=== PATIENT | female | born 1945 | race Caucasian/White ===

== ENCOUNTER → 2016-09-05 | Outpatient (CLI) | payer OTHER ==
[~2016-09-05] MED LIST: ACET-24 PO; ASPI-232 PO; ASPI81TA28 PO; CARB25TA12 PO; CLB200 PO; DTRSR/2 PO; FLX5 PO; FURO-85 PO; KETO2CRE14 TOP; LEVO50TA PO; LOSA1TAB PO; MIRA1TAB3 PO; ONDA8TAB6 PO; OXYSR/20 PO; POTA10CA28 PO; RXC5 PO; SIMV20TA5 PO; SNK PO; SPIR50TA2 PO; ULT/50 PO
== END | disposition home or self-care (01) ==
LOC: C.LABSPEC 17:19
PROVIDERS: ATTEND Urology
DX: N39.0 Urinary tract infection, site not specified (principal)

== ENCOUNTER → 2016-10-23 | Outpatient (CLI) | payer OTHER | END | disposition home or self-care (01) | LOC: C.LABSPEC 10:10 | PROVIDERS: ATTEND Nurse Practitioner Family | DX: R39.15 Urgency of urination (principal); N39.41 Urge incontinence; N39.0 Urinary tract infection, site not specified ==

== ENCOUNTER → 2017-02-12 | Outpatient (CLI) | payer OTHER | END | disposition home or self-care (01) | LOC: C.LABSPEC 17:00 | PROVIDERS: ATTEND Nurse Practitioner Family | DX: N39.41 Urge incontinence (principal); N39.0 Urinary tract infection, site not specified ==

== ENCOUNTER 2017-03-18 04:53 | Inpatient (IN) | payer OTHER ==
[2017-03-07 14:57] VITALS: Ht 160 cm; Wt 72.2 kg
--- NOTE | 2017-03-07 15:31 | PAT Medication Instructions ---
Service Date Mar 07, 2017. Current Home Medication List Aspirin (Aspir-81), 1 TAB PO HS Carbidopa/Levodopa (Sinemet 25MG/100MG), 1.5 TAB PO TID Furosemide (Lasix), 20 MG PO QAM Ketoconazole 2% (Nizoral 2%), 1 APPLN TOP PRN Levothyroxine Sodium (Synthroid), 50 MCG PO QAM Losartan Potassium (Cozaar), 25 MG PO QAM Mirabegron (Myrbetriq Er), 50 MG PO HS Potassium Chloride (Micro-K Ext Rel), 1 CAP PO QAM Simvastatin (Zocor), 20 MG PO HS Spironolactone (Aldactone), 50 MG PO QAM Tolterodine Tartrate (Detrol LA), 1 CAP PO BID Tramadol Hcl (Ultram), 50 MG PO Q6 PRN Medication Instructions For Your Scheduled Surgery - Hold the following medications 24 hours prior to surgery: Ketoconazole 2% (Nizoral 2%), 1 APPLN TOP PRN - Hold the following medications the morning of surgery: Spironolactone (Aldactone), 50 MG PO QAM Tolterodine Tartrate (Detrol LA), 1 CAP PO BID Losartan Potassium (Cozaar), 25 MG PO QAM Potassium Chloride (Micro-K Ext Rel), 1 CAP PO QAM Furosemide (Lasix), 20 MG PO QAM - Take the following medications the morning of surgery with a sip of water: Tramadol Hcl (Ultram), 50 MG PO Q6 PRN (okay to take up to 4 hours prior to surgery if needed) Levothyroxine Sodium (Synthroid), 50 MCG PO QAM Carbidopa/Levodopa (Sinemet 25MG/100MG), 1.5 TAB PO TID - Take the following medications as scheduled the night before surgery: Tramadol Hcl (Ultram), 50 MG PO Q6 PRN (if needed) Tolterodine Tartrate (Detrol LA), 1 CAP PO BID Simvastatin (Zocor), 20 MG PO HS Mirabegron (Myrbetriq Er), 50 MG PO HS Aspirin (Aspir-81), 1 TAB PO HS (okay to continue per surgeon) Carbidopa/Levodopa (Sinemet 25MG/100MG), 1.5 TAB PO TID If you have any questions please call us at [phone] or [phone] or [phone]
--- NOTE | 2017-03-07 16:03 | DIAGNOSTIC IMAGING REPORT ---
CHEST PREADMISSION(PA/LAT) CLINICAL HISTORY: PAT preoperative evaluation COMPARISON STUDY: 03/01/2016 FINDINGS: The bones soft tissues and hemidiaphragms are normal. The cardiomediastinal silhouette is normal. The lungs are clear. The pulmonary vasculature is normal. IMPRESSION: Negative chest. The above report was generated using voice recognition software. It may contain grammatical, syntax or spelling errors. Electronically signed by: Garcia Mckinney M.D. 03/07/2017 4:02 PM Dictated Date/Time: 03/07/2017 4:02 PM
[2017-03-07 16:10] LABS: BASO % 0.7 %; BASO ABS # 0.05 K/uL (0-0.2); COMPLETE YES; EOS % 6.1 %; HEMATOCRIT 46.3 % (37-47); IG% 0.1 %; LYMPH % 24.7 %; LYMPH ABS # 1.77 K/uL (1.2-3.4); MEAN CELL VOLUME 93.9 fL (80-100); MEAN CORPUSCULAR HEMOGLOBIN 30.8 pg (25-34); MEAN CORPUSCULAR HGB CONC 32.8 g/dl (32-36); MEAN PLATELET VOLUME 9.7 fL (7.4-10.4); MONO % 10.6 %; NEUT % 57.8 %; PLATELET COUNT 282 K/uL (130-400); RED BLOOD COUNT 4.93 M/uL (4.2-5.4); WHITE BLOOD COUNT 7.18 K/uL (4.8-10.8)
[2017-03-07 16:13] LABS: URINE APPEARANCE CLEAR (CLEAR); URINE BILIRUBIN NEG (NEG); URINE COLOR YELLOW; URINE NITRITE NEG (NEG); URINE SPECIFIC GRAVITY 1.019 (1.000-1.030); UROBILINOGEN NEG (NEG)
[2017-03-07 16:19] LABS: MANUAL MICROSCOPIC REQUIRED? NO; REVIEW REQ? NO
[2017-03-07 16:32] LABS: PARTIAL THROMBOPLASTIN RATIO 1.1; PROTHROMBIN TIME (PATIENT) 10.4 SECONDS (9.0-12.0)
--- NOTE | 2017-03-14 18:38 | History and Physical ---
History & Physical Date Mar 14, 2017. Chief Complaint RIGHT KNEE PAIN History of Present Illness The patient is a 71 year old female with complaints of right knee pain for years. Pt has severe flexion contracture of about 15 degrees. Pt has tried nsaids and PT and injections with no relief. Pt is ready for right TKA. Past Medical/Surgical History Surgical Problems: (1) Post-operative state Additional History Hepatic Disease: No Endocrine Disorder: No Kidney Disease: No Hypertension: Yes Heart Disease: No Bleeding Tendencies: No Infectious Diseases: No Allergies Coded Allergies: Lisinopril (Verified Adverse Reaction, Mild, COUGH, 03/07/17) Home Medications Scheduled Aspirin (Aspir-81), 1 TAB PO HS Carbidopa/Levodopa (Sinemet 25MG/100MG), 1.5 TAB PO TID Furosemide (Lasix), 20 MG PO QAM Ketoconazole 2% (Nizoral 2%), 1 APPLN TOP PRN Levothyroxine Sodium (Synthroid), 50 MCG PO QAM Losartan Potassium (Cozaar), 25 MG PO QAM Mirabegron (Myrbetriq Er), 50 MG PO HS Potassium Chloride (Micro-K Ext Rel), 1 CAP PO QAM Simvastatin (Zocor), 20 MG PO HS Spironolactone (Aldactone), 50 MG PO QAM Tolterodine Tartrate (Detrol LA), 1 CAP PO BID Scheduled PRN Tramadol Hcl (Ultram), 50 MG PO Q6 PRN Physical Examination Skin: warm/dry, no rash Eyes: normal inspection, EOMI, sclerae normal ENT: normal ENT inspection, pharynx normal Head: normocephalic, atraumatic Neck: supple, no adenopathy, trachea midline Respiratory/Chest: lungs clear, normal breath sounds, no respiratory distress Cardiovascular: regular rate, rhythm, no edema, no murmur Abdomen / GI: normal bowel sounds, non tender Back: normal inspection Extremities: normal inspection, normal range of motion, + pertinent finding ( pain with rom. Rom is 15-100. 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
[~2017-03-18] VITALS: Ht 160 cm; Wt 72.2 kg
[2017-03-18] VITALS (9 sets, daily range): BP systolic 97–120; BP diastolic 60–91; PULSE 80–90; TEMP 36.4–36.8; O2SAT 91–94
[~2017-03-18 04:53] MED LIST changes: -ACET-24 PO; -ASPI81TA28 PO; -CLB200 PO; -FLX5 PO; -ONDA8TAB6 PO; -OXYSR/20 PO; -RXC5 PO; -SNK PO
[2017-03-18] MEDS ORDERED: LACTATED RINGER'S 1000ML 500 ML IV ONE (06:00)
[2017-03-18] MEDS ORDERED: TRANEXAMIC ACID INJ 1,000 MG in SODIUM CHLORIDE 0.9% 100ML 100 ML IV SCH ×2 (06:00→14:00)
[2017-03-18] MEDS ORDERED: LACTATED RINGER'S 1000ML 1,000 ML IV SCH (06:00)
[2017-03-18] MEDS ORDERED: CeleBREX 200 MG CAP PO SCH (06:00)
[2017-03-18] MEDS ORDERED: CEFAZOLIN 1000MG/55 ML D5W 55 ML IV SCH (06:00)
[2017-03-18] MEDS ORDERED: ROPIVACAINE 5MG/ML 30 ML 150 MG, BUPIVACAINE/EPINEPHR 0.5% MPF 30 ML, KETOROLAC TROMETH... INFIL SCH ×7 (06:00)
[2017-03-18] MEDS ORDERED: LACTATED RINGER'S 1000ML IV SCH (06:00)
[2017-03-18] MEDS ORDERED: BUPIVACAINE 0.5 % 5 MG/1 ML PF 10ML VIAL ONE (06:26)
[2017-03-18] MEDS ORDERED: BUPIVACAINE 0.25% 30 ML VIAL ONE (06:27)
[2017-03-18] MEDS ORDERED: EpINEphrine INJ 1MG/ML AMP 1 MG/ML AMP ONE (06:27)
[2017-03-18] MEDS ORDERED: BACITRACIN 50000 UNIT VIAL ONE (06:41)
[2017-03-18] MEDS ORDERED: POVIDONE-IODINE OP SOLN 30 ML BTL ONE (06:41)
[2017-03-18] MEDS ORDERED: NURSING VERBAL MED ORDER STA (06:43)
[2017-03-18] MEDS ORDERED: MIDAZOLAM HCL 1 MG/ML 2ML VIAL ONE ×2 (06:45)
[2017-03-18] MEDS ORDERED: FENTANYL CITRATE INJ 50 MCG/1 ML 2 ML VIAL ONE (06:45)
[2017-03-18] MEDS ORDERED: LIDOCAINE HCL 2% 2 ML VIAL (20MG/ML) ONE (06:50)
[2017-03-18] MEDS ORDERED: PROPOFOL IV EMULSION 10 MG/ML 20 ML VIAL IV ONE (06:50)
--- NOTE | 2017-03-18 06:51 | History & Physical Bridge Note ---
H&P Re-Evaluation Bridge Note: I have examined the patient, reviewed the History & Physical and in the interval since the performance of the History & Physical I have noted the following changes of clinical significance: No changes noted
[2017-03-18] MEDS ORDERED: PHENYLEPHRINE 100MCG/ML 5ML SYR ONE (07:47)
[2017-03-18] MEDS ORDERED: EpHEDrine SULFATE 50MG/5ML SYR ONE (08:06)
[2017-03-18] MEDS ORDERED: EpHEDrine SULFATE INJ 50 MG/ML AMP IV PRN (08:15)
[2017-03-18] MEDS ORDERED: ATROPINE SULFATE 0.1 MG/ML 5ML SYR IV PRN (08:15)
[2017-03-18] MEDS ORDERED: ONDANSETRON INJ 2 MG/ML 2 ML VIAL IV PRN ×2 (08:15→08:30)
[2017-03-18] MEDS ORDERED: PROMETHAZINE HCL INJ 6.25 MG in SODIUM CHLORIDE 0.9% 50ML 50 ML IV PRN (08:15)
[2017-03-18] MEDS ORDERED: FENTANYL CITRATE INJ 50 MCG/1 ML 2 ML VIAL IV PRN (08:15)
[2017-03-18] MEDS ORDERED: KETOCONAZOLE 2% CR 15 GM TUBE EXT PRN (08:30)
[2017-03-18] MEDS ORDERED: MAGNESIUM HYDROXIDE SUSP 30 ML UDC PO PRN (08:30)
[2017-03-18] MEDS ORDERED: ZOLPIDEM TARTRATE 5 MG TAB PO PRN (08:30)
[2017-03-18] MEDS ORDERED: ALUMINUM/MAGNESIUM/SIMETH (MAALOX MAX) 30 ML UDC PO PRN (08:30)
[2017-03-18] MEDS ORDERED: SILVER SULFADIAZINE 1% CR 50 GM JAR EXT PRN (08:30)
[2017-03-18] MEDS ORDERED: BISACODYL 10 MG SUPP PR PRN (08:30)
--- NOTE | 2017-03-18 08:30 | [facility] Operative Report ---
Operative Report Operative Date Mar 18, 2017. 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 Post-Operative Diagnosis Same as preoperative diagnosis. Procedure(s) Performed Right total knee arthroplasty. Surgeon Dr. Muir [employer] Surgeon(s) Юлия Tyler PA-C Estimated Blood Loss 20ML Findings As above Specimens A. Right knee bone and tissue. Complication(s) None Disposition Recovery Room / PACU Description of Procedure IMPLANTS USED: Horacio triathlon posterior stabilized size 4 cemented femoral component, a size 3 universal baseplate and a size 9 PS insert with size 32 all polyethylene patella (For a [place] knee) INDICATIONS: [Mr./. ] is a pleasant (female) who has unfortunately failed all forms of conservative measures. Therefore, they have decided to undergo elective surgical intervention. All risks and benefits of the surgery were discussed with the patient and the family in entirety. PROCEDURE: The patient was brought to the operating room and properly identified by myself, anesthesia, and staff. Patient was given a spinal anesthesia and placed on the operating table in the supine position. Tourniquets were applied to the right upper thigh. The leg was then prepped and draped in usual sterile fashion. We made a standard midline approach over the patella and dissected down through the subcutaneous tissue to identify the capsule and performed a medial capsulotomy with the patella everted and the knee flexed. We then removed the spurs from around the femur and proximal tibia. I then put in a pilot can router hole in the femur, put the IM cutting guide into place in approximately 5 degrees of valgus, and then the distal femoral cut was made. The femur measure to be a size 4. This was then put into place. We made the appropriate cuts and then placed a retractor behind the proximal tibia to retract anteriorly. We then placed the extramedullary cutting guide in place , made sure we had the appropriate varus and valgus alignment and appropriate slope, and the proximal tibia cut was made. It measured to be a size 3. A size 3 guide was then put in place. We used the tibial punch then put the trial components into place. We had very good range of motion, excellent stability, and excellent patella tracking. We removed the trial components and irrigated the wound. We impacted the components in place using antibiotic cement. All excess cement was removed. We then irrigated the wound once more. We closed the capsule with 0 PDS suture, deep dermis with 2-0 Vicryl, and finally the skin with jani. A sterile dressing was applied. The patient was taken to the recovery room in stable condition. Due to the complex nature of the procedure, the entire surgery was performed with the operational assistance of [the (JORGE)]. The medical assistant secretary was under direct supervision, was involved in the actual performance of all aspects of the surgical procedure including hemostasis, tissue retraction and incision, instrument management, patient positioning, and wound closure. I attest to the content of the Intraoperative Record and any orders documented therein. Any exceptions are noted below.
--- NOTE | 2017-03-18 09:18 | Anesthesiology Progress Note ---
Anesthesia Post Op Note Date & Time Mar 18, 2017 at 09:18 Vital Signs Pain Intensity: 0 Vital Signs Past 12 Hours Date Time Temp Pulse Resp B/P (MAP) Pulse Ox O2 Delivery O2 Flow Rate FiO2 03/18/17 09:10 89 16 106/50 95 Nasal Cannula 2 03/18/17 09:00 94 16 114/54 94 Nasal Cannula 3 03/18/17 08:52 36.6 92 16 106/48 94 Nasal Cannula 3 03/18/17 05:46 36.6 81 18 109/91 93 Room Air Notes Mental Status: alert / awake / arousable, participated in evaluation Pt Amnestic to Procedure: Yes Nausea / Vomiting: adequately controlled Pain: adequately controlled Airway Patency, RR, SpO2: stable & adequate BP & HR: stable & adequate Hydration State: stable & adequate Anesthetic Complications: no major complications apparent
[2017-03-18] MEDS: SODIUM CHLORIDE 0.9% 1000ML 1,000 ML IV SCH ×2 (10:23→18:14)
[2017-03-18] MEDS: OXYCODONE HCL IR 5 MG TAB (IMMEDIATE RELEASE) PO PRN ×3 (10:52→20:56)
--- NOTE | 2017-03-18 13:10 | Medical Consult ---
Consultation Date of Consultation: Mar 18, 2017. Attending Physician: Gary Muir DO Reason for Consultation: Medical Management History of Present Illness Ms. Houston is a 71 y/o female with PMHx of Parkinson's, HTN, Hypothyroidism, HLD, Pre-DM (Diet Controlled) who is S/P TKA on 03/18. Currently pain is well managed and she is hemodynamically stable. She reports good control with her Parkinson symptoms but reports shuffling gait and bradykinesia. She reports a H/ O pre-DM but never diagnosed with DM. She denies a cardiac H/O including SC, CAD , CHF, or DVT/PE. HTN has been controlled and takes diuretics for BP control per patient. Pre-operative echo reviewed and EF WNL with trace MR and TR. Past Medical/Surgical History 1. HTN 2. Hypothyroidism 3. HLD 4. Parkinson's 5. Pre-DM Family History Alzheimers Disease Coronary Artery Disease Social History Smoking Status: Never Smoker Smokeless Tobacco Use: No Alcohol Use: none Drug Use: none Allergies Coded Allergies: Lisinopril (Verified Adverse Reaction, Mild, COUGH, 03/18/17) Current Inpatient Medications Current Inpatient Medications Medications (Trade) Dose Ordered Sig/Miguel Route Start Time Stop Time Status Last Admin Dose Admin Fentanyl Citrate (Fentanyl Inj) 50 mcg Q5M PRN IV 03/18/17 08:15 03/18/17 13:15 Ondansetron HCl (Zofran Inj) 4 mg ONE PRN IV 03/18/17 08:15 03/18/17 13:15 Promethazine HCl 6.25 mg/Sodium Chloride 50.25 ml @ 202 mls/hr ONE PRN IV 03/18/17 08:15 03/18/17 13:15 Ephedrine Sulfate (EpHEDrine SULFATE INJ) 5 mg Q5M PRN IV 03/18/17 08:15 03/18/17 13:15 Atropine Sulfate (Atropine Sulfate 0.1MG/Ml Inj) 0.5 mg Q1M PRN IV 03/18/17 08:15 03/18/17 13:15 Sodium Chloride 1,000 ml @ 100 mls/hr Q10H IV 03/18/17 08:18 03/19/17 08:17 03/18/17 10:23 100 MLS/HR Oxycodone HCl (Roxicodone Immediate Rel Tab) 1 TABLET FOR PAIN RATING... Q4H PRN PO 03/18/17 08:30 04/01/17 08:29 03/18/17 10:52 10 MG Acetaminophen (Tylenol Tab) 1,000 mg Q8 PO 03/18/17 14:00 04/17/17 13:59 Magnesium Hydroxide (Milk Of Magnesia Susp) 30 ml Q6H PRN PO 03/18/17 08:30 04/17/17 08:29 Bisacodyl (Dulcolax Supp) 10 mg DAILY PRN NC 03/18/17 08:30 04/17/17 08:29 Docusate Sodium (coLACE CAP) 100 mg BID PO 03/18/17 21:00 04/17/17 20:59 Diphenhydramine HCl (Benadryl Cap) 25 mg Q8H PRN PO 03/18/17 08:30 04/17/17 08:29 Al Hydrox/Mg Hydrox/Simethicone (Maalox Max Susp) 15 ml Q4H PRN PO 03/18/17 08:30 04/17/17 08:29 Zolpidem Tartrate (Ambien Tab) 5 mg HSZ PRN PO 03/18/17 08:30 04/17/17 08:29 Ondansetron HCl (Zofran Inj) 4 mg Q6H PRN IV 03/18/17 08:30 04/17/17 08:29 Silver Sulfadiazine (Silvadene 1% Crm 50GM Jar) 1 appln BID PRN EXT 03/18/17 08:30 04/17/17 08:29 Tranexamic Acid 1000 mg/Sodium Chloride 110 ml @ 660 mls/hr Q6H IV 03/18/17 14:00 03/18/17 14:09 Dexamethasone Sodium Phosphate 10 mg/Syringe 2.5 ml @ 1 mls/min TODAY@0730 IV 03/19/17 07:30 03/19/17 07:33 Aspirin (Ecotrin Tab) 81 mg BID PO 03/18/17 21:00 04/17/17 20:59 Carbidopa/Levodopa (Sinemet 25/ 100MG Tab) 1.5 tab TID PO 03/18/17 14:00 04/17/17 13:59 Furosemide (Lasix Tab) 20 mg QAM PO 03/19/17 09:00 04/18/17 08:59 Ketoconazole (Nizoral 2% Crm) 1 appln DAILY PRN EXT 03/18/17 08:30 03/28/17 08:29 Levothyroxine Sodium (Synthroid Tab) 50 mcg DAILYBB PO 03/19/17 06:00 04/18/17 05:59 Losartan Potassium (coZAAR TAB) 25 mg QAM PO 03/19/17 09:00 04/18/17 08:59 Mirabegron (Myrbetriq Er) 50 mg HS PO 03/18/17 21:00 04/17/17 20:59 Potassium Chloride (Klor-Con M10) 10 meq QAM PO 03/19/17 09:00 04/18/17 08:59 Simvastatin (Zocor Tab) 20 mg HS PO 03/18/17 21:00 04/17/17 20:59 Spironolactone (Aldactone Tab) 50 mg QAM PO 03/19/17 09:00 04/18/17 08:59 Tolterodine Tartrate (Detrol LA Cap) 2 mg BID PO 03/18/17 21:00 04/17/17 20:59 Cefazolin Sodium 2000 mg/Dextrose 60 ml @ 100 mls/hr Q8H IV 03/18/17 16:00 03/19/17 00:35 Review of Systems Constitutional: No fever, No chills ENT: No nasal symptoms, No sore throat, No trouble swallowing Respiratory: No cough, No shortness of breath Cardiovascular: No chest pain, No palpitations Abdomen: No pain, No nausea, No vomiting, No diarrhea, No constipation Musculoskeletal: No swelling, No calf pain Genitourinary - Female: No dysuria Neurologic: No numbness/tingling Hematologic / Lymphatic: No abnormal bleeding/bruising Physical Exam Date Time Temp Pulse Resp B/P (MAP) Pulse Ox O2 Delivery O2 Flow Rate FiO2 03/18/17 12:40 80 17 101/63 (76) 92 Nasal Cannula 2.0 03/18/17 11:46 84 18 97/60 (72) 94 Nasal Cannula 2.0 03/18/17 10:43 36.7 89 17 110/67 (81) 91 Nasal Cannula 2.0 03/18/17 10:13 36.4 85 17 107/64 (78) 93 Nasal Cannula 2.0 03/18/17 09:40 36.6 90 16 111/65 (80) 91 Nasal Cannula 2.0 03/18/17 09:40 91 Nasal Cannula 2.0 03/18/17 09:40 Nasal Cannula 2.0 03/18/17 09:20 36.6 86 16 103/53 95 Nasal Cannula 2 03/18/17 09:10 89 16 106/50 95 Nasal Cannula 2 03/18/17 09:00 94 16 114/54 94 Nasal Cannula 3 03/18/17 08:52 36.6 92 16 106/48 94 Nasal Cannula 3 03/18/17 05:46 36.6 81 18 109/91 93 Room Air General Appearance: WD/WN, no apparent distress Head: normocephalic, atraumatic Eyes: sclerae normal ENT: hearing grossly normal Neck: supple, no JVD, trachea midline Respiratory/Chest: lungs clear, normal breath sounds, no respiratory distress, no accessory muscle use Cardiovascular: regular rate, rhythm, no gallop, no murmur Abdomen/GI: normal bowel sounds, non tender, soft Extremities/Musculoskelatal: no pedal edema, + pertinent finding (R leg with TSERING wrap C/D/I) Neurologic/Psych: alert, oriented x 3 Skin: normal color, warm/dry Laboratory Results Last 24 Hours Test 03/18/17 05:32 03/18/17 09:01 Bedside Glucose 96 mg/dl 89 mg/dl Assessment & Plan Ms. Houston is a 71 y/o female with PMHx of Parkinson's, HTN, Hypothyroidism, HLD, DM (Diet Controlled) who is S/P TKA on 03/18. S/P R TKA on 03/18: - Pain management, IVF, PT/OT, DVT prophylaxis per primary team - DVT prophylaxis - ASA 81 mg BID HTN: CONTROLLED - Hold Losartan, Lasix, and Spironolactone until AM labs - if kidney function adequate they can be resumed - Cover with Hydralazine PRN Hypothyroidism: - Synthroid 50 mcg daily Parkinson's: - Sinemet 1.5 tab TID HLD: - Simvastatin 20 mg daily Pre-DM: STABLE - Only monitor with BMP glucose readings Disposition: D/C per primary - Monitor vitals and assess labs in AM - recommend resuming home medications if labs allow .Attending Addendum: I have physically seen this patient, have directed the physician assistants medical activities, and agree with the H&P as noted above with the following exceptions as noted. Assessment and Plan: Status post right total knee arthroplasty on 03/18-- Seen postoperatively and is medically stable. Hypertension-- Losartan, Lasix and spironolactone as noted above. Hydralazine 10 mg IV every 4 hours when necessary systolic blood pressure greater than 160. Next Hypothyroidism-- continue Synthroid 50 g by mouth daily. Parkinson's-- Continue Sinemet 1.5 tablets by mouth 3 times a day. Ex Hyperlipidemia-- Continue simvastatin 20 mg by mouth daily.
[2017-03-18] MEDS: ACETAMINOPHEN 500 MG TAB PO SCH ×2 (14:23→22:03)
[2017-03-18] MEDS: CARBIDOPA/LEVODOPA 25/100MG TAB PO SCH ×2 (14:24→20:53)
[2017-03-18] MEDS ORDERED: HydrALAZINE HCL 20 MG/ML VIAL IV. PRN (14:30)
[2017-03-18] MEDS: CEFAZOLIN IV 2,000 MG in DEXTROSE 5% 50ML 50 ML IV SCH ×2 (15:45→23:28)
[2017-03-18] MEDS ORDERED: CEFAZOLIN IV 2 MG in DEXTROSE 5% 50ML 50 ML IV SCH (16:00)
[2017-03-18] MEDS: TOLTERODINE TARTRATE LA 2 MG CAPCR PO SCH (20:54)
[2017-03-18] MEDS: MIRABEGRON ER 25 MG TAB PO SCH (20:54)
[2017-03-18] MEDS: ASPIRIN 81 MG ECTAB PO SCH (20:54)
[2017-03-18] MEDS: SIMVASTATIN 20 MG TAB PO SCH (20:55)
[2017-03-18] MEDS: DOCUSATE SODIUM 100 MG CAP PO SCH (20:55)
[2017-03-19] VITALS (7 sets, daily range): BP systolic 104–148; BP diastolic 61–80; PULSE 77–86; TEMP 36.6–36.8; O2SAT 85–93
[2017-03-19] MEDS: SODIUM CHLORIDE 0.9% 1000ML 1,000 ML IV SCH (03:53)
[2017-03-19] MEDS: LEVOTHYROXINE 50 MCG TAB PO SCH (05:32)
[2017-03-19] MEDS: ACETAMINOPHEN 500 MG TAB PO SCH ×3 (05:32→21:23)
[2017-03-19 06:08] LABS: HEMATOCRIT 37.9 % (37-47); MEAN CELL VOLUME 93.1 fL (80-100); MEAN CORPUSCULAR HEMOGLOBIN 30.7 pg (25-34); MEAN PLATELET VOLUME 9.6 fL (7.4-10.4); PLATELET COUNT 233 K/uL (130-400); RED BLOOD COUNT 4.07 M/uL (4.2-5.4); WHITE BLOOD COUNT 10.95 K/uL (4.8-10.8)
[2017-03-19 06:40] LABS: BUN/CREATININE RATIO 18.4 (10-20); CALCIUM 8.5 mg/dl (8.5-10.1); CREATININE 0.74 mg/dl (0.60-1.20); POTASSIUM 4.1 mmol/L (3.5-5.1)
[2017-03-19] MEDS ORDERED: DEXAMETHASONE INJ 10 MG in SYRINGE 0 ML IV SCH (07:30)
[2017-03-19] MEDS: OXYCODONE HCL IR 5 MG TAB (IMMEDIATE RELEASE) PO PRN ×4 (07:33→21:43)
--- NOTE | 2017-03-19 07:46 | Orthopedic Progress Note ---
Orthopedic Progress Note Date of Service Mar 19, 2017. Subjective Post OP Day: 1 Reports: feeling well, Denies: chest pain, SOB, nausea / vomiting, light headedness, calf pain Objective calves soft nontender, N/V intact, dressing C/D/I, A&O x3, toes mobile Date Time Temp Pulse Resp B/P (MAP) Pulse Ox O2 Delivery O2 Flow Rate FiO2 03/19/17 07:37 93 Room Air 03/19/17 07:18 36.6 82 17 148/80 (102) 93 Nasal Cannula 2.0 03/19/17 03:44 93 Nasal Cannula 2.0 03/19/17 03:34 36.7 86 20 122/72 (89) 85 Room Air 03/18/17 23:15 Room Air 03/18/17 22:51 36.6 83 14 120/80 (93) 93 Room Air 03/18/17 18:58 36.8 80 18 110/69 (83) 93 Nasal Cannula 2.0 03/18/17 15:45 Nasal Cannula 2.0 03/18/17 14:59 36.7 85 18 109/65 (80) 92 Nasal Cannula 2.0 03/18/17 12:40 80 17 101/63 (76) 92 Nasal Cannula 2.0 03/18/17 11:46 84 18 97/60 (72) 94 Nasal Cannula 2.0 03/18/17 10:43 36.7 89 17 110/67 (81) 91 Nasal Cannula 2.0 03/18/17 10:13 36.4 85 17 107/64 (78) 93 Nasal Cannula 2.0 03/18/17 09:40 36.6 90 16 111/65 (80) 91 Nasal Cannula 2.0 03/18/17 09:40 91 Nasal Cannula 2.0 03/18/17 09:40 Nasal Cannula 2.0 03/18/17 09:20 36.6 86 16 103/53 95 Nasal Cannula 2 03/18/17 09:10 89 16 106/50 95 Nasal Cannula 2 03/18/17 09:00 94 16 114/54 94 Nasal Cannula 3 03/18/17 08:52 36.6 92 16 106/48 94 Nasal Cannula 3 Laboratory Results 24 Hours: Test 03/19/17 05:24 Hematocrit 37.9 % Hemoglobin 12.5 g/dL Assessment & Plan Assessment: POD#1 SP RIGHT TKA Plan: PT/OT PAIN MANAGEMENT- OXANA, TYLENOL MEDICAL MANAGEMENT DC PLANNING- PATIENT WOULD LIKE REFERRAL TO [facility]
--- NOTE | 2017-03-19 07:46 | Anesthesiology Progress Note ---
Anesthesia Post Op Note Date & Time Mar 19, 2017 at 07:45 Vital Signs Vital Signs Past 12 Hours Date Time Temp Pulse Resp B/P (MAP) Pulse Ox O2 Delivery O2 Flow Rate FiO2 03/19/17 07:37 93 Room Air 03/19/17 07:18 36.6 82 17 148/80 (102) 93 Nasal Cannula 2.0 03/19/17 03:44 93 Nasal Cannula 2.0 03/19/17 03:34 36.7 86 20 122/72 (89) 85 Room Air 03/18/17 23:15 Room Air 03/18/17 22:51 36.6 83 14 120/80 (93) 93 Room Air Notes Mental Status: alert / awake / arousable, participated in evaluation Pt Amnestic to Procedure: Yes Nausea / Vomiting: adequately controlled Pain: adequately controlled Airway Patency, RR, SpO2: stable & adequate BP & HR: stable & adequate Hydration State: stable & adequate Neuraxial Anesthesia: sensory block resolved Anesthetic Complications: no major complications apparent
[2017-03-19] MEDS ORDERED: SPIRONOLACTONE 25 MG TAB PO SCH (09:00)
[2017-03-19] MEDS ORDERED: LOSARTAN POTASSIUM 25 MG TAB PO SCH (09:00)
[2017-03-19] MEDS ORDERED: FUROSEMIDE 20 MG TAB PO SCH (09:00)
[2017-03-19] MEDS: ASPIRIN 81 MG ECTAB PO SCH ×2 (09:01→21:21)
[2017-03-19] MEDS: DOCUSATE SODIUM 100 MG CAP PO SCH ×2 (09:01→21:21)
[2017-03-19] MEDS: CARBIDOPA/LEVODOPA 25/100MG TAB PO SCH ×3 (09:02→21:21)
[2017-03-19] MEDS: POTASSIUM CHLORIDE 10 MEQ TABCR PO SCH (09:02)
[2017-03-19] MEDS: TOLTERODINE TARTRATE LA 2 MG CAPCR PO SCH ×2 (09:02→21:21)
--- NOTE | 2017-03-19 10:03 | Hospitalist Progress Note ---
Hospitalist Progress Note Date of Service Mar 19, 2017. Subjective Pt evaluation today including: conversation w/ patient, physical exam, lab review, review of studies, review of inpatient medication list Voiding: no voiding problems Patient feeling well this AM. Ambulated from bathroom to bedside chair w/ walker - no significant difficulty. Pain is well controlled. Eating and drinking OK. +flatus, no BM postop. Patient denies any fever, chills, sweats, lightheadedness, dizziness, vision changes, CP, palpitations, edema, SOB, wheezing, cough, abdominal pain, nausea, vomiting, diarrhea, urinary symptoms, melena, numbness/tingling, weakness, anxiety/depression, active bleeding, or new skin discoloration/changes. Medications Current Inpatient Medications Medications (Trade) Dose Ordered Sig/Miguel Route Start Time Stop Time Status Last Admin Dose Admin Oxycodone HCl (Roxicodone Immediate Rel Tab) 1 TABLET FOR PAIN RATING... Q4H PRN PO 03/18/17 08:30 04/01/17 08:29 03/19/17 07:33 10 MG Acetaminophen (Tylenol Tab) 1,000 mg Q8 PO 03/18/17 14:00 04/17/17 13:59 03/19/17 05:32 1,000 MG Magnesium Hydroxide (Milk Of Magnesia Susp) 30 ml Q6H PRN PO 03/18/17 08:30 04/17/17 08:29 Bisacodyl (Dulcolax Supp) 10 mg DAILY PRN MI 03/18/17 08:30 04/17/17 08:29 Docusate Sodium (coLACE CAP) 100 mg BID PO 03/18/17 21:00 04/17/17 20:59 03/19/17 09:01 100 MG Diphenhydramine HCl (Benadryl Cap) 25 mg Q8H PRN PO 03/18/17 08:30 04/17/17 08:29 Al Hydrox/Mg Hydrox/Simethicone (Maalox Max Susp) 15 ml Q4H PRN PO 03/18/17 08:30 04/17/17 08:29 Zolpidem Tartrate (Ambien Tab) 5 mg HSZ PRN PO 03/18/17 08:30 04/17/17 08:29 Ondansetron HCl (Zofran Inj) 4 mg Q6H PRN IV 03/18/17 08:30 04/17/17 08:29 Silver Sulfadiazine (Silvadene 1% Crm 50GM Jar) 1 appln BID PRN EXT 03/18/17 08:30 04/17/17 08:29 Aspirin (Ecotrin Tab) 81 mg BID PO 03/18/17 21:00 04/17/17 20:59 03/19/17 09:01 81 MG Carbidopa/Levodopa (Sinemet 25/ 100MG Tab) 1.5 tab TID PO 03/18/17 14:00 04/17/17 13:59 03/19/17 09:02 1.5 TAB Ketoconazole (Nizoral 2% Crm) 1 appln DAILY PRN EXT 03/18/17 08:30 03/28/17 08:29 Levothyroxine Sodium (Synthroid Tab) 50 mcg DAILYBB PO 03/19/17 06:00 04/18/17 05:59 03/19/17 05:32 50 MCG Mirabegron (Myrbetriq Er) 50 mg HS PO 03/18/17 21:00 04/17/17 20:59 03/18/17 20:54 50 MG Potassium Chloride (Klor-Con M10) 10 meq QAM PO 03/19/17 09:00 04/18/17 08:59 03/19/17 09:02 10 MEQ Simvastatin (Zocor Tab) 20 mg HS PO 03/18/17 21:00 04/17/17 20:59 03/18/17 20:55 20 MG Tolterodine Tartrate (Detrol LA Cap) 2 mg BID PO 03/18/17 21:00 04/17/17 20:59 03/19/17 09:02 2 MG Hydralazine HCl (HydrALAZINE INJ) 10 mg Q6 PRN IV. 03/18/17 14:30 04/17/17 14:29 Objective Vital Signs Date Time Temp Pulse Resp B/P (MAP) Pulse Ox O2 Delivery O2 Flow Rate FiO2 03/19/17 08:00 Room Air 03/19/17 07:37 93 Room Air 03/19/17 07:18 36.6 82 17 148/80 (102) 93 Nasal Cannula 2.0 03/19/17 03:44 93 Nasal Cannula 2.0 03/19/17 03:34 36.7 86 20 122/72 (89) 85 Room Air 03/18/17 23:15 Room Air 03/18/17 22:51 36.6 83 14 120/80 (93) 93 Room Air 03/18/17 18:58 36.8 80 18 110/69 (83) 93 Nasal Cannula 2.0 03/18/17 15:45 Nasal Cannula 2.0 03/18/17 14:59 36.7 85 18 109/65 (80) 92 Nasal Cannula 2.0 03/18/17 12:40 80 17 101/63 (76) 92 Nasal Cannula 2.0 03/18/17 11:46 84 18 97/60 (72) 94 Nasal Cannula 2.0 03/18/17 10:43 36.7 89 17 110/67 (81) 91 Nasal Cannula 2.0 03/18/17 10:13 36.4 85 17 107/64 (78) 93 Nasal Cannula 2.0 03/18/17 09:40 36.6 90 16 111/65 (80) 91 Nasal Cannula 2.0 03/18/17 09:40 91 Nasal Cannula 2.0 03/18/17 09:40 Nasal Cannula 2.0 03/18/17 09:20 36.6 86 16 103/53 95 Nasal Cannula 2 03/18/17 09:10 89 16 106/50 95 Nasal Cannula 2 03/18/17 09:00 94 16 114/54 94 Nasal Cannula 3 03/18/17 08:52 36.6 92 16 106/48 94 Nasal Cannula 3 Physical Exam General Appearance: no apparent distress Eyes: normal inspection, PERRL ENT: hearing grossly normal Neck: supple Respiratory/Chest: lungs clear, no respiratory distress, no accessory muscle use Cardiovascular: regular rate, rhythm Abdomen: normal bowel sounds, non tender, soft Extremities: no pedal edema, no calf tenderness, + pertinent finding (R knee w / TSERING wrap ) Neurologic/Psychiatric: no motor/sensory deficits, alert, normal mood/affect, oriented x 3 Skin: normal color, warm/dry, no rash Laboratory Results Last 24 Hours Test 03/18/17 09:01 03/19/17 05:24 Bedside Glucose 89 mg/dl White Blood Count 10.95 K/uL Red Blood Count 4.07 M/uL Hemoglobin 12.5 g/dL Hematocrit 37.9 % Mean Corpuscular Volume 93.1 fL Mean Corpuscular Hemoglobin 30.7 pg Mean Corpuscular Hemoglobin Concent 33.0 g/dl RDW Standard Deviation 42.8 fL RDW Coefficient of Variation 12.5 % Platelet Count 233 K/uL Mean Platelet Volume 9.6 fL Sodium Level 140 mmol/L Potassium Level 4.1 mmol/L Chloride Level 110 mmol/L Carbon Dioxide Level 23 mmol/L Anion Gap 7.0 mmol/L Blood Urea Nitrogen 14 mg/dl Creatinine 0.74 mg/dl Est Creatinine Clear Calc Drug Dose 66.4 ml/min Estimated GFR () 94.5 Estimated GFR (Non- 81.5 BUN/Creatinine Ratio 18.4 Random Glucose 113 mg/dl Calcium Level 8.5 mg/dl Assessment and Plan Ms. Houston is a 71 y/o female with PMHx of Parkinson's, HTN, Hypothyroidism, HLD, DM (Diet Controlled) who is S/P TKA on 03/18. s/p R TKA on 03/[address] Muir: - Pain management, IVF, PT/OT, DVT prophylaxis per primary team - Postop labs- STABLE - Encouraged incentive spirometer HTN- STABLE: - Held Losartan, Lasix, and Spironolactone until postop labs- resume - Hydralazine PRN Hypothyroidism: Synthroid 50 mcg daily Parkinson's: Sinemet 1.5 tab TID HLD: Simvastatin 20 mg daily Pre-DM- STABLE: Monitor w/ BMP glucose readings DVT prophylaxis: ASA 81 mg BID Code Status: LEVEL I, FULL Disposition: Discharge as per primary team\
[2017-03-19] MEDS: SIMVASTATIN 20 MG TAB PO SCH (21:21)
[2017-03-19] MEDS: MIRABEGRON ER 25 MG TAB PO SCH (21:21)
[2017-03-20] MEDS: OXYCODONE HCL IR 5 MG TAB (IMMEDIATE RELEASE) PO PRN ×3 (04:14→12:39)
[2017-03-20] MEDS: ACETAMINOPHEN 500 MG TAB PO SCH (05:28)
[2017-03-20] MEDS: LEVOTHYROXINE 50 MCG TAB PO SCH (05:45)
[2017-03-20 06:08] VITALS: BP 121/70; PULSE 79; TEMP 36.4; O2SAT 89
[2017-03-20 07:30] VITALS: O2SAT 94
[2017-03-20] MEDS: ASPIRIN 81 MG ECTAB PO SCH (07:34)
[2017-03-20] MEDS: POTASSIUM CHLORIDE 10 MEQ TABCR PO SCH (07:35)
[2017-03-20] MEDS: DOCUSATE SODIUM 100 MG CAP PO SCH (07:35)
[2017-03-20] MEDS: TOLTERODINE TARTRATE LA 2 MG CAPCR PO SCH (07:36)
[2017-03-20] MEDS: CARBIDOPA/LEVODOPA 25/100MG TAB PO SCH (07:36)
--- NOTE | 2017-03-20 08:05 | Discharge Instructions ---
Discharge Instructions Date of Service Mar 20, 2017. Admission Reason for Admission: Right Knee Osteoarthritis Discharge Discharge Diagnosis / Problem: SP RIGHT TKA Discharge Goals Goal(s): Decrease discomfort, Improve function, Increase independence Activity Recommendations Activity Limitations: per Instructions/Follow-up section . Instructions / Follow-Up Instructions / Follow-Up ACTIVITY RECOMMENDATIONS: SELF CARE INSTRUCTIONS AFTER TOTAL KNEE REPLACEMENT A. You may need to continue a physical therapy program after discharge from the hospital. There are several options available to you. Your doctor will assist you in selecting the best one for you. 1. An out-patient facility 2 to 3 times a week for therapy or home therapy. 2. Continue working on all exercises taught to you in the hospital. Your goals should be to increase bending of your knee to 90 degrees and beyond and to fully straighten your knee. B. You may progress at your own pace from walking with a walker or crutches to a cane; then to no assistive devices. C. Make walking a part of your daily routine. Be up as much as comfortable with rest periods throughout the day. Rest with leg elevation is very important. Use the ice wrap frequently for the first 3-4 weeks. D. There are no restrictions on activities. You may ride in a car, shop, participate in coil assembler and all social activities. E. Wear the long elastic stockings (RENETTA hose) 20 hours a day for 2 weeks after surgery. They can be removed several times a day for laundering and for a bath. F. You may shower, no tub baths until cleared by your doctor. SPECIAL CARE INSTRUCTIONS: VERY IMPORTANT TO READ AND REVIEW A. There are a few signs you need to watch for after you are home. Call [facility] if you notice any of the followin. Increased severe knee pain. Some pain is expected especially when you exercise. 2. Increased swelling in your leg or knee; pain or swelling of the calf muscle in either lower leg. 3. Any fluid drainage from the incision. 4. Shortness of breath or chest pain. B. Please call [facility] at if you have any concerns or questions about your operation or recovery. The doctor or his nurse will return your call promptly. C. You must take antibiotics before dental work, bladder, bowel or other surgery. Your doctor will provide you with a permanent care to carry describing this precaution. IMPORTANT: * REMEMBER TO TAKE ASPIRIN, 81 MG, TWICE DAILY FOR 4 WEEKS UNLESS OTHERWISE DIRECTED. THIS IS YOUR BLOOD THINNER. * HIGH RISK PATIENTS MAY BE PRESCRIBED A STRONGER BLOOD THINNER. THIS WILL BE PROVIDED AT DISCHARGE. * CALL IF INCREASED PAIN, REDNESS, DRAINAGE OR FEVER GREATER THAT 101. * WEAR RENETTA HOSE 20 HOURS PER DAY FOR 2 WEEKS. DERMABOND Prineo- This is a mesh tape dressing that is covered with glue. It should remain in place until the incision is properly healed, usually 10-14 days. This dressing is designed to naturally slough off. You may trim the excess mesh tape as it peels off. Incision may be briefly wet in a shower. Dry immediately by blotting with a clean, dry towel. Do not bath or swim until instructed by your doctor. Do not scratch, rub, or pick at the dressing. Do not apply any topical ointments or lotions until dressing is completely removed and/or instructed by your doctor. There may be a small piece of suture material at one end of your incision. Do not pull or trim this. If it is bothersome or catching on clothing, you may cover it with a band-aid. FOLLOW UP VISIT: If appointment is not already scheduled: Please call [facility] to make a follow-up appointment for 2 weeks after your surgery at . Current Hospital Diet Patient's current hospital diet: Regular Diet Discharge Diet Recommended Diet: Regular Diet Procedures Procedures Performed: Right total knee arthroplasty. Pending Studies Studies pending at discharge: no Medical Emergencies . Who to Call and When: Medical Emergencies: If at any time you feel your situation is an emergency, please call 911 immediately. . Non-Emergent Contact Non-Emergency issues call your: Surgeon . "Provider Documentation" section prepared by Юлия Schroeder. . VTE Core Measure Inpt VTE Proph given/why not?: Other Anticoagulation, SCD's [place] Drug Monitoring Program Search Results: patient reviewed within database, no issues identified
[2017-03-20] MEDS ORDERED: ONDA8TAB6 PO (08:06)
[2017-03-20] MEDS ORDERED: ACET-24 PO (08:06)
[2017-03-20] MEDS ORDERED: ASPI-232 PO (08:06)
[2017-03-20] MEDS ORDERED: RXC5 PO (08:06)
--- NOTE | 2017-03-20 08:55 | DISCHARGE SUMMARY ---
DATE OF DISCHARGE: 03/20/2017 DISCHARGE DIAGNOSIS: Degenerative joint disease, right knee. SECONDARY DIAGNOSIS: None. CONSULTS: None. COMPLICATIONS: None. PROCEDURE: The patient underwent a right total knee arthroplasty with Dr. Muir on 03/18/2017. BRIEF HISTORY: Please see previously dictated history and physical. HOSPITAL SUMMARY: The patient was admitted on the above day for the above procedure. Procedure went without complication. Postop day 1, the patient was feeling well without complaints. She denied chest pain or shortness of breath. Vital signs were stable. She was afebrile. Dressing was clean, dry and intact. She was neurovascularly intact. Calves were soft and nontender. Hemoglobin was 12.5. The patient began physical therapy per protocol. Postop day 2, the patient continued to improve. Vital signs were stable. She was afebrile. Incision was clean, dry and intact. She was neurovascularly intact. Calves were soft and nontender. The patient continued to progress with physical therapy. She was discharged home later that day in stable condition. For further review please see the chart. Lab, x-ray data and discharge instructions as per chart.
[2017-03-20] MEDS ORDERED: SPIRONOLACTONE 25 MG TAB PO SCH (09:00)
[2017-03-20] MEDS ORDERED: LOSARTAN POTASSIUM 25 MG TAB PO SCH (09:00)
[2017-03-20] MEDS ORDERED: FUROSEMIDE 20 MG TAB PO SCH (09:00)
[2017-03-20 09:20] VITALS: BP 121/70; PULSE 79; TEMP 36.4; O2SAT 94
== END 2017-03-20 13:22 | disposition home or self-care (01) | DRG 470 ==
LOC: C.ACU 04:53 → C.3E 06:40 → ENRESERV 09:24
PROVIDERS: ADMIT Orthopaedic Surgery; ATTEND Orthopaedic Surgery
PROC: 0SRC0J9 Replacement of Right Knee Joint with Synthetic Substitute, Cemented, Open Approach (ICD-10-PCS; principal; 2017-03-18 07:00)
DX: M17.11 Unilateral primary osteoarthritis, right knee (principal); M24.561 Contracture, right knee; G20 Parkinson's disease; I10 Essential (primary) hypertension; E03.9 Hypothyroidism, unspecified; E78.5 Hyperlipidemia, unspecified; R73.03 Prediabetes; Z79.82 Long term (current) use of aspirin; Z79.899 Other long term (current) drug therapy

== ENCOUNTER 2017-07-15 08:05 | Inpatient (IN) | payer OTHER ==
[2017-07-04 10:40] VITALS: BMI 25.0
--- NOTE | 2017-07-04 11:17 | PAT Medication Instructions ---
Service Date Jul 04, 2017. Current Home Medication List Aspirin (Aspirin Ec), 81 MG PO QPM Carbidopa/Levodopa (Sinemet 25MG/100MG), 1.5 TAB PO TID Furosemide (Lasix), 20 MG PO QAM Ketoconazole 2% (Nizoral 2%), 1 APPLN TOP PRN Levothyroxine Sodium (Synthroid), 50 MCG PO QAM Losartan Potassium (Cozaar), 25 MG PO QAM Oxycodone HCl (Oxycodone HCl), 5-10 MG PO Q4H PRN for Pain Potassium Chloride (Micro-K Ext Rel), 1 CAP PO QAM Simvastatin (Zocor), 20 MG PO HS Spironolactone (Aldactone), 50 MG PO QAM Tramadol Hcl (Ultram), 50 MG PO Q6 PRN [Oxybutynin], 1 TAB PO BID Medication Instructions For Your Scheduled Surgery - Hold the following medications 24 hours prior to surgery: Ketoconazole 2% (Nizoral 2%), 1 APPLN TOP PRN - Hold the following medications the morning of surgery: Furosemide (Lasix), 20 MG PO QAM [Oxybutynin], 1 TAB PO BID Losartan Potassium (Cozaar), 25 MG PO QAM Potassium Chloride (Micro-K Ext Rel), 1 CAP PO QAM Spironolactone (Aldactone), 50 MG PO QAM - Take the following medications the morning of surgery with a sip of water: Carbidopa/Levodopa (Sinemet 25MG/100MG), 1.5 TAB PO TID Levothyroxine Sodium (Synthroid), 50 MCG PO QAM Oxycodone HCl (Oxycodone HCl), 5-10 MG PO Q4H PRN for Pain (okay to take up to 4 hours prior to surgery if needed) Tramadol Hcl (Ultram), 50 MG PO Q6 PRN(okay to take up to 4 hours prior to surgery if needed) - Take the following medications as scheduled the night before surgery: Aspirin (Aspirin Ec), 81 MG PO QPM [Oxybutynin], 1 TAB PO BID Simvastatin (Zocor), 20 MG PO HS Oxycodone HCl (Oxycodone HCl), 5-10 MG PO Q4H PRN for Pain (if needed) Tramadol Hcl (Ultram), 50 MG PO Q6 PRN (if needed) If you have any questions please call us at [phone] or [phone] or [phone]
[2017-07-04 12:49] LABS: BASO % 0.6 %; BASO ABS # 0.04 K/uL (0-0.2); EOS % 2.9 %; HEMATOCRIT 47.6 % (37-47); IG# 0.01 K/uL (0.00-0.02); LYMPH % 18.2 %; LYMPH ABS # 1.26 K/uL (1.2-3.4); MEAN CELL VOLUME 94.1 fL (80-100); MEAN CORPUSCULAR HEMOGLOBIN 31.6 pg (25-34); MEAN CORPUSCULAR HGB CONC 33.6 g/dl (32-36); MONO % 7.5 %; MONO ABS # 0.52 K/uL (0.11-0.59); NEUT % 70.7 %; NEUT ABS # 4.88 K/uL (1.4-6.5); PLATELET COUNT 288 K/uL (130-400); RED CELL DISTRIBUTION WIDTH SD 44.3 fL (36.4-46.3); WHITE BLOOD COUNT 6.91 K/uL (4.8-10.8)
[2017-07-04 12:59] LABS: INR 0.9 (0.9-1.1); PTT PATIENT 26.4 SECONDS (21.0-31.0)
[2017-07-04 13:32] LABS: ALBUMIN 3.9 gm/dl (3.4-5.0); CALCIUM 9.9 mg/dl (8.5-10.1); CREATININE 0.74 mg/dl (0.60-1.20); POTASSIUM 4.5 mmol/L (3.5-5.1)
[2017-07-04 13:35] LABS: TOTAL PROTEIN 7.9 gm/dl (6.4-8.2)
--- NOTE | 2017-07-13 07:57 | History and Physical ---
History & Physical Date Jul 13, 2017. Chief Complaint left hip pain History of Present Illness The patient is a 71 year old female with complaints of left hip pain for years. LImping constantly, and cant do adls. nothing seems to be helping her. shes ready for left sandra. Past Medical/Surgical History Medical Problems: (1) Right knee DJD Surgical Problems: (1) Post-operative state Additional History Hepatic Disease: No Endocrine Disorder: No Kidney Disease: No Hypertension: Yes Heart Disease: No Bleeding Tendencies: No Infectious Diseases: No Allergies Coded Allergies: Lisinopril (Verified Adverse Reaction, Mild, COUGH, 07/04/17) Home Medications Scheduled Aspirin (Aspirin Ec), 81 MG PO QPM Carbidopa/Levodopa (Sinemet 25MG/100MG), 1.5 TAB PO TID Furosemide (Lasix), 20 MG PO QAM Ketoconazole 2% (Nizoral 2%), 1 APPLN TOP PRN Levothyroxine Sodium (Synthroid), 50 MCG PO QAM Losartan Potassium (Cozaar), 25 MG PO QAM Potassium Chloride (Micro-K Ext Rel), 1 CAP PO QAM Simvastatin (Zocor), 20 MG PO HS Spironolactone (Aldactone), 50 MG PO QAM [Oxybutynin], 1 TAB PO TID Scheduled PRN Oxycodone HCl (Oxycodone HCl), 5-10 MG PO Q4H PRN for Pain Tramadol Hcl (Ultram), 50 MG PO Q6 PRN Physical Examination Skin: warm/dry, no rash Eyes: normal inspection, EOMI, sclerae normal ENT: normal ENT inspection, pharynx normal Head: normocephalic, atraumatic Neck: supple, no adenopathy, trachea midline Respiratory/Chest: lungs clear, normal breath sounds, no respiratory distress Cardiovascular: regular rate, rhythm, no edema, no murmur Abdomen / GI: normal bowel sounds, non tender Back: normal inspection Extremities: normal inspection, normal range of motion, + pertinent finding Neurologic/Psych: no motor/sensory deficits, alert, normal reflexes, oriented x 3 Addiitonal Comments: decreased rom and pain with rom. Diagnosis djd left hip Plan of Treatment plan is to admit and undergo left sandra. plan is then to dc home next day with home pt
[2017-07-15] VITALS (9 sets, daily range): BP systolic 93–146; BP diastolic 59–71; PULSE 68–95; TEMP 36.3–37.1; O2SAT 92–97; Ht 160 cm; Wt 66.4 kg
[~2017-07-15] VITALS: Ht 160 cm; Wt 66.4 kg
[2017-07-15] MEDS: TRANEXAMIC ACID INJ 1,000 MG in SYRINGE 0 ML IV SCH ×2 (06:30→10:00)
[~2017-07-15 08:05] MED LIST changes: +ACETAMINOPHEN 500 MG TAB PO SCH; -ASPI-232 PO; +ASPI81TA28 PO; +BUPIVACAINE 0.5 % 5 MG/1 ML PF 10ML VIAL ONE; +CEFAZOLIN 1000MG IV PUSH 5 ML IV SCH; +CeleBREX 200 MG CAP PO SCH; +DEXAMETHASONE 4 MG TAB PO SCH; -DTRSR/2 PO; +FAMOTIDINE 20 MG TAB PO SCH; +LACTATED RINGER'S 1000ML 1,000 ML IV SCH; +METOCLOPRAMIDE HCL 10 MG TAB PO SCH; -MIRA1TAB3 PO; +OXYBUTYNIN PO; +ROPIVACAINE 5MG/ML 30 ML 150 MG, BUPIVACAINE 0.5% MPF INJ 30 ML, EpINEphrine HCL INJ 0.... INFIL SCH; +RXC5 PO
[2017-07-15] MEDS ORDERED: MIDAZOLAM HCL 1 MG/ML 2ML VIAL ONE ×2 (08:27→10:32)
[2017-07-15] MEDS ORDERED: FENTANYL CITRATE INJ 50 MCG/1 ML 2 ML VIAL IV PRN (09:30)
[2017-07-15] MEDS ORDERED: ATROPINE SULFATE 0.1 MG/ML 5ML SYR IV PRN (09:30)
[2017-07-15] MEDS ORDERED: ONDANSETRON INJ 2 MG/ML 2 ML VIAL IV PRN ×2 (09:30→11:30)
[2017-07-15] MEDS ORDERED: EpHEDrine SULFATE INJ 50 MG/ML AMP IV PRN (09:30)
[2017-07-15] MEDS ORDERED: POVIDONE-IODINE OP SOLN 30 ML BTL ONE (09:41)
[2017-07-15] MEDS ORDERED: ORTHO JOINT ANESTHETIC ONE (09:41)
[2017-07-15] MEDS ORDERED: BACITRACIN 50000 UNIT VIAL ONE (09:41)
[2017-07-15] MEDS ORDERED: FENTANYL CITRATE INJ 50 MCG/1 ML 2 ML VIAL ONE (10:14)
[2017-07-15] MEDS ORDERED: LIDOCAINE HCL 2% 2 ML VIAL (20MG/ML) ONE (10:53)
[2017-07-15] MEDS ORDERED: PROPOFOL IV EMULSION 10 MG/ML 20 ML VIAL IV ONE (10:53)
[2017-07-15] MEDS ORDERED: EpHEDrine SULFATE 50MG/5ML SYR ONE (10:53)
--- NOTE | 2017-07-15 11:19 | [facility] Post Operative Brief Note ---
Immediate Operative Summary Operative Date Jul 15, 2017. Pre-Operative Diagnosis djd left hip Post-Operative Diagnosis same Procedure(s) Performed left total hip arthroplasty uncemented Surgeon dr bailey Vp Purchasing Surgeon(s) Cordell Clemons Estimated Blood Loss 20cc Findings Consistent with Post-Op Diagnosis Specimens none Drains hemovac Anesthesia Type Spinal Complication(s) none Disposition Accompanied Pt To Recover: no Disposition: Recovery Room / PACU
[2017-07-15] MEDS ORDERED: PHENYLEPHRINE 100MCG/ML 5ML SYR ONE (11:23)
[2017-07-15] MEDS ORDERED: SOD PHOSPHATE/SOD BIPHOSPHATE ENEMA 132 ML BTL PR PRN (11:30)
[2017-07-15] MEDS ORDERED: BISACODYL 10 MG SUPP PR PRN (11:30)
[2017-07-15] MEDS ORDERED: MAGNESIUM HYDROXIDE SUSP 30 ML UDC PO PRN (11:30)
[2017-07-15] MEDS ORDERED: ZOLPIDEM TARTRATE 5 MG TAB PO PRN (11:30)
[2017-07-15] MEDS ORDERED: ALUMINUM/MAGNESIUM/SIMETH (MAALOX MAX) 30 ML UDC PO PRN (11:30)
[2017-07-15] MEDS ORDERED: OXYCODONE HCL IR 5 MG TAB (IMMEDIATE RELEASE) PO PRN (11:30)
--- NOTE | 2017-07-15 11:32 | [facility] Operative Report ---
Operative Report Operative Date Jul 15, 2017. Pre-Operative Diagnosis djd left hip Post-Operative Diagnosis same Procedure(s) Performed left total hip arthroplasty uncemented Surgeon dr bailey Embedded Processor Surgeon(s) Cordell Clemons Estimated Blood Loss 20cc Findings as above Specimens A: Left femoral head Drains hemovac Complication(s) None Disposition Recovery Room / PACU Description of Procedure IMPLANTS USED: Implants used were a Horacio size 52 mm PSL SCHNEIDER-coated acetabular cup, one asked over screw, a 36 mm X3 elevated liner a size 3 Accolade 2 stem with a 127 neck and a 36 mm +0 ceramic head INDICATIONS: Mrs. Howell is a pleasant female who has unfortunately failed all forms of conservative measures. Therefore, they have has decided to undergo elective surgical intervention. All risks and benefits of the surgery were discussed with the patient and the family in entirety. PROCEDURE: The patient was brought to the operating room and properly identified by myself, anesthesia, and staff. Patient was given a spinal anesthetic and placed on the operating table with the left hip up. The hip was then prepped and draped in the standard orthopedic fashion. We made a standard posterolateral approach over the greater trochanteric area. We then dissected down to subcutaneous tissue until the fascia was identified. We incised the fascia in line with the skin incision. We then split the gluteus stephania muscles with finger dissection. We then put the Charnley retractor in place. We placed the retractor underneath the gluteus medius to expose the piriformis. The piriformis was then tagged with a tag suture and released from the insertion from the greater trochanteric area with the use of electrocautery. We then performed a T capsulotomy and the femoral head and neck were atraumatically dislocated. We then performed femoral neck osteotomy at the pre- template site. We removed the femoral head and neck without difficulty. We then placed the retractor around the acetabulum. We then began to ream the acetabulum to the appropriate size. We then impacted the cup into place and had a very good fixation within the pelvis. We then put the liner in place as well. Then using multiple size approaches from the Accolade 2 system a size #3 fit very nicely in the proximal femur. I then put trial components in place. WE had very good range of motion, excellent stability, and excellent leg length equality. We removed the trial components and irrigated the wound. We then impacted the components in place and irrigated the wound once more. We then closed the capsule and fascia with a 0 Vicryl suture, the deep dermis with 2-0 Vicryl suture, and finally the skin with a running 3-0 Vicryl subcuticular stitch. A sterile dressing was applied. The patient was taken to the recovery room in stable condition. Due to the complex nature of the procedure, the entire surgery was performed with the operational assistance of [the (JORGE)]. The electrician's assistant was under direct supervision, was involved in the actual performance of all aspects of the surgical procedure including hemostasis, tissue retraction and incision, instrument management, patient positioning, and wound closure. I attest to the content of the Intraoperative Record and any orders documented therein. Any exceptions are noted below.
--- NOTE | 2017-07-15 12:55 | Anesthesiology Progress Note ---
Anesthesia Post Op Note Date & Time Jul 15, 2017 at 12:54 Vital Signs Pain Intensity: 0 Vital Signs Past 12 Hours Date Time Temp Pulse Resp B/P (MAP) Pulse Ox O2 Delivery O2 Flow Rate FiO2 07/15/17 12:48 36.9 07/15/17 12:46 101/50 07/15/17 12:45 78 21 96 07/15/17 12:45 77 21 07/15/17 12:41 96/50 07/15/17 12:40 68 21 96 07/15/17 12:40 72 21 07/15/17 12:36 113/41 07/15/17 12:35 76 18 07/15/17 12:35 77 18 96 07/15/17 12:31 109/53 07/15/17 12:30 83 19 97 07/15/17 12:30 80 19 07/15/17 12:26 104/48 07/15/17 12:25 73 23 07/15/17 12:25 73 23 97 07/15/17 12:21 106/49 07/15/17 12:20 74 20 07/15/17 12:20 69 20 97 07/15/17 12:16 92/57 07/15/17 12:15 68 20 97 07/15/17 12:15 69 20 07/15/17 12:11 103/51 07/15/17 12:10 79 17 97 07/15/17 12:10 79 17 07/15/17 12:06 102/54 07/15/17 12:05 78 21 96 07/15/17 12:05 79 21 07/15/17 12:01 100/49 07/15/17 12:00 80 18 07/15/17 12:00 81 18 97 07/15/17 11:56 96/55 07/15/17 11:55 85 20 96 07/15/17 11:55 84 20 07/15/17 11:52 106/54 07/15/17 11:50 36.5 89 16 106/54 97 Nasal Cannula 3 07/15/17 09:00 36.7 69 20 146/71 97 Room Air 07/15/17 08:55 36.7 69 20 146/71 97 Room Air Notes Mental Status: alert / awake / arousable, participated in evaluation Pt Amnestic to Procedure: Yes Nausea / Vomiting: adequately controlled Pain: adequately controlled Airway Patency, RR, SpO2: stable & adequate BP & HR: stable & adequate Hydration State: stable & adequate Neuraxial Anesthesia: was administered, sensory block is resolving Anesthetic Complications: no major complications apparent
[2017-07-15] MEDS: SODIUM CHLORIDE 0.9% 1000ML 1,000 ML IV SCH (15:16)
[2017-07-15] MEDS: CARBIDOPA/LEVODOPA 25/100MG TAB PO SCH ×2 (15:23→21:06)
[2017-07-15] MEDS ORDERED: NURSING VERBAL MED ORDER ONE (15:30)
[2017-07-15] MEDS ORDERED: DTR5 PO (15:32)
[2017-07-15] MEDS ORDERED: INFLUENZA VIRUS QUAD VACCINE 0.5 ML SYR IM. ONE (16:00)
[2017-07-15] MEDS ORDERED: INFLUENZA ADMINISTRATION CHARGE ONE (16:00)
[2017-07-15] MEDS ORDERED: INFLUENZA VACCINE HIGH DOSE 65+ 0.5 ML SYR IM. ONE (16:00)
[2017-07-15] MEDS: OXYBUTYNIN CHLORIDE 5 MG TAB PO SCH ×2 (16:30→21:06)
[2017-07-15] MEDS: OXYCODONE HCL IR 5 MG TAB (IMMEDIATE RELEASE) PO PRN ×2 (16:37→21:18)
[2017-07-15] MEDS ORDERED: TRANEXAMIC ACID INJ 1,000 MG in SODIUM CHLORIDE 0.9% 100ML 100 ML IV SCH (18:00)
[2017-07-15] MEDS: CEFAZOLIN IV 2,000 MG in SYRINGE 0 ML IV SCH (18:59)
[2017-07-15] MEDS: DOCUSATE SODIUM 100 MG CAP PO SCH (21:05)
[2017-07-15] MEDS: ASPIRIN 81 MG ECTAB PO SCH (21:05)
[2017-07-15] MEDS: SENNA 8.6 MG TAB PO SCH (21:06)
[2017-07-15] MEDS: SIMVASTATIN 20 MG TAB PO SCH (21:07)
[2017-07-15] MEDS: ACETAMINOPHEN 500 MG TAB PO SCH (22:04)
[2017-07-16] MEDS: SODIUM CHLORIDE 0.9% 1000ML 1,000 ML IV SCH ×2 (00:03→08:46)
[2017-07-16] MEDS: CEFAZOLIN IV 2,000 MG in SYRINGE 0 ML IV SCH (01:35)
[2017-07-16 03:50] VITALS: BP 102/61; PULSE 77; TEMP 37.1; O2SAT 91
[2017-07-16] MEDS: OXYCODONE HCL IR 5 MG TAB (IMMEDIATE RELEASE) PO PRN ×3 (05:01→14:50)
[2017-07-16] MEDS: LEVOTHYROXINE 50 MCG TAB PO SCH (06:35)
[2017-07-16] MEDS: ACETAMINOPHEN 500 MG TAB PO SCH ×3 (06:36→21:56)
[2017-07-16 07:07] LABS: BASO % 0.1 %; BASO ABS # 0.01 K/uL (0-0.2); HEMATOCRIT 35.6 % (37-47); HEMOGLOBIN 12.3 g/dL (12.0-16.0); IG# 0.05 K/uL (0.00-0.02); LYMPH % 4.5 %; LYMPH ABS # 0.75 K/uL (1.2-3.4); MEAN CELL VOLUME 91.5 fL (80-100); MEAN CORPUSCULAR HEMOGLOBIN 31.6 pg (25-34); MEAN CORPUSCULAR HGB CONC 34.6 g/dl (32-36); MEAN PLATELET VOLUME 9.8 fL (7.4-10.4); MONO % 4.9 %; MONO ABS # 0.82 K/uL (0.11-0.59); NEUT % 90.2 %; NEUT ABS # 15.04 K/uL (1.4-6.5); PLATELET COUNT 244 K/uL (130-400); RED CELL DISTRIBUTION WIDTH SD 42.9 fL (36.4-46.3); WHITE BLOOD COUNT 16.67 K/uL (4.8-10.8)
[2017-07-16 07:14] VITALS: BP 115/71; PULSE 77; TEMP 36.8; O2SAT 91
[2017-07-16] MEDS ORDERED: DEXAMETHASONE INJ 10 MG in SYRINGE 0 ML IV SCH (07:30)
--- NOTE | 2017-07-16 07:34 | Anesthesiology Progress Note ---
Anesthesia Post Op Note Date & Time Jul 16, 2017 at 07:34 Vital Signs Pain Intensity: 6.0 Vital Signs Past 12 Hours Date Time Temp Pulse Resp B/P (MAP) Pulse Ox O2 Delivery O2 Flow Rate FiO2 07/16/17 07:14 36.8 77 16 115/71 (86) 91 Room Air 07/16/17 03:50 37.1 77 18 102/61 (75) 91 Room Air 07/16/17 00:00 Room Air 07/15/17 23:40 37.1 86 16 111/69 (83) 92 Room Air 07/15/17 20:40 36.8 95 18 93/59 (70) 92 Room Air Notes Mental Status: alert / awake / arousable, participated in evaluation Pt Amnestic to Procedure: Yes Nausea / Vomiting: adequately controlled Pain: adequately controlled Airway Patency, RR, SpO2: stable & adequate BP & HR: stable & adequate Hydration State: stable & adequate Neuraxial Anesthesia: was administered, sensory block resolved Anesthetic Complications: no major complications apparent
--- NOTE | 2017-07-16 08:34 | Orthopedic Progress Note ---
Orthopedic Progress Note Date of Service Jul 16, 2017. Subjective Post OP Day: 1 Reports: feeling well, Denies: chest pain, SOB, light headedness, calf pain Additional Notes: Had moderate hip pain last night which is better this AM after receiving pain meds. Also having some problems with her right knee s/p TKA. No other complaints this AM. Would like to go to [facility] for OPPT. Objective calves soft nontender, N/V intact, hip located, dressing C/D/I, A&O x3, toes mobile, hemovac drainage (50ml latest shift) Date Time Temp Pulse Resp B/P (MAP) Pulse Ox O2 Delivery O2 Flow Rate FiO2 07/16/17 07:14 36.8 77 16 115/71 (86) 91 Room Air 07/16/17 03:50 37.1 77 18 102/61 (75) 91 Room Air 07/16/17 00:00 Room Air 07/15/17 23:40 37.1 86 16 111/69 (83) 92 Room Air 07/15/17 20:40 36.8 95 18 93/59 (70) 92 Room Air 07/15/17 16:37 Room Air 2.0 07/15/17 16:10 36.3 86 18 100/62 (75) 94 Room Air 07/15/17 15:10 36.5 86 16 100/63 (75) 96 Nasal Cannula 2.0 07/15/17 14:12 36.4 68 16 97/60 (72) 96 Nasal Cannula 2.0 07/15/17 13:40 36.7 76 18 98/61 (73) 96 Nasal Cannula 2.0 07/15/17 13:05 92 Nasal Cannula 2.0 07/15/17 13:05 92 Nasal Cannula 2.0 07/15/17 13:05 36.6 81 16 99/59 (72) 92 Nasal Cannula 2.0 07/15/17 12:48 36.9 07/15/17 12:46 101/50 07/15/17 12:45 78 21 96 07/15/17 12:45 77 21 07/15/17 12:41 96/50 07/15/17 12:40 68 21 96 07/15/17 12:40 72 21 07/15/17 12:36 113/41 1/22/18 12:35 76 18 07/15/17 12:35 77 18 96 07/15/17 12:31 109/53 07/15/17 12:30 83 19 97 07/15/17 12:30 80 19 07/15/17 12:26 104/48 07/15/17 12:25 73 23 07/15/17 12:25 73 23 97 07/15/17 12:21 106/49 07/15/17 12:20 74 20 07/15/17 12:20 69 20 97 07/15/17 12:16 92/57 07/15/17 12:15 68 20 97 07/15/17 12:15 69 20 07/15/17 12:11 103/51 07/15/17 12:10 79 17 97 07/15/17 12:10 79 17 07/15/17 12:06 102/54 07/15/17 12:05 78 21 96 07/15/17 12:05 79 21 07/15/17 12:01 100/49 07/15/17 12:00 80 18 07/15/17 12:00 81 18 97 07/15/17 11:56 96/55 07/15/17 11:55 85 20 96 07/15/17 11:55 84 20 07/15/17 11:52 106/54 07/15/17 11:50 36.5 89 16 106/54 97 Nasal Cannula 3 07/15/17 09:00 36.7 69 20 146/71 97 Room Air 07/15/17 08:55 36.7 69 20 146/71 97 Room Air Laboratory Results 24 Hours: Test 07/16/17 06:22 White Blood Count 16.67 K/uL Red Blood Count 3.89 M/uL Hemoglobin 12.3 g/dL Hematocrit 35.6 % Mean Corpuscular Volume 91.5 fL Mean Corpuscular Hemoglobin 31.6 pg Mean Corpuscular Hemoglobin Concent 34.6 g/dl Platelet Count 244 K/uL Mean Platelet Volume 9.8 fL Neutrophils (%) (Auto) 90.2 % Lymphocytes (%) (Auto) 4.5 % Monocytes (%) (Auto) 4.9 % Eosinophils (%) (Auto) 0.0 % Basophils (%) (Auto) 0.1 % Neutrophils # (Auto) 15.04 K/uL Lymphocytes # (Auto) 0.75 K/uL Monocytes # (Auto) 0.82 K/uL Eosinophils # (Auto) 0.00 K/uL Basophils # (Auto) 0.01 K/uL Assessment & Plan Assessment: POD 1 s/p Left YUSUF Plan: PT/OT today Plan for [facility] [place] OPPT Inhouse Planning Pain Management: PO Tylenol, Oxy IR DVT Prophylaxis: TEDs, SCDs, ASA Discharge Planning Discharge Planning: rehab hospital
--- NOTE | 2017-07-16 08:34 | Clinical Documentation Query ---
CLINICAL DOCUMENTATION QUERY A 71 yo female s/p left total hip arthroplasty. In your clinical opinion is this patient being managed for: ( ) Urinary tract infection ( ) Not Agree ( ) Other explanation of clinical findings (Please Explain) ( ) Unable to determine (Please Define) ( ) Need to Discuss The medical record reflects the following clinical findings, treatment, and risk factors. Clinical Indicators: Dirty UA with + E. coli growth on micro Treatment: IV Cefazolin, IV hydration, I&O Risk Factors: Age, female Please clarify and document your clinical opinion in the progress notes and discharge summary. Terms such as "probable", "suspected", "likely", "questionable", "possible", or "still to be ruled out" are acceptable. IF IN AGREEMENT, YOU MUST DOCUMENT ABOVE DIAGNOSTIC STATEMENT IN DAILY PROGRESS NOTES AND DISCHARGE SUMMARY. This document is not part of the patient's record. Thank You, Lina Desir RN [phone]
[2017-07-16] MEDS: SPIRONOLACTONE 100 MG TAB PO SCH (08:42)
[2017-07-16] MEDS: DOCUSATE SODIUM 100 MG CAP PO SCH ×2 (08:43→21:57)
[2017-07-16] MEDS: POTASSIUM CHLORIDE 10 MEQ TABCR PO SCH (08:43)
[2017-07-16] MEDS: ASPIRIN 81 MG ECTAB PO SCH ×2 (08:43→21:57)
[2017-07-16] MEDS: OXYBUTYNIN CHLORIDE 5 MG TAB PO SCH ×3 (08:43→21:57)
[2017-07-16] MEDS: LOSARTAN POTASSIUM 25 MG TAB PO SCH (08:43)
[2017-07-16] MEDS: FUROSEMIDE 20 MG TAB PO SCH (08:44)
[2017-07-16] MEDS: CARBIDOPA/LEVODOPA 25/100MG TAB PO SCH ×3 (08:44→21:56)
[2017-07-16 10:51] VITALS: BP 98/57; PULSE 61; TEMP 37; O2SAT 91
[2017-07-16] MEDS ORDERED: MoRPHine SULFATE 2 MG/ML CARP IV PRN (12:45)
--- NOTE | 2017-07-16 13:54 | DIAGNOSTIC IMAGING REPORT ---
AP PELVIS, CROSSTABLE LATERAL LEFT HIP History: Left total hip arthroplasty. Degenerative arthritis. Postop. FINDINGS: The patient is status post a left total hip arthroplasty. The hardware is intact. No fracture or dislocation. Skin jani and surgical drains are in place. Evidence for prior right total hip arthroplasty. IMPRESSION: Left total hip arthroplasty. No evidence for hardware complication. Electronically signed by: Brett Kim M.D. 07/16/2017 1:53 PM Dictated Date/Time: 07/16/2017 1:52 PM
[2017-07-16] MEDS: KETOROLAC TROMETHAMINE 15 MG/ML VIAL IV. PRN (14:46)
--- NOTE | 2017-07-16 15:21 | Discharge Instructions ---
Discharge Instructions Date of Service Jul 16, 2017. Admission Reason for Admission: Left Hip Osteoarthritis Discharge Discharge Diagnosis / Problem: sp left YUSUF Discharge Goals Goal(s): Decrease discomfort, Improve function, Increase independence Activity Recommendations Activity Limitations: per Instructions/Follow-up section . Instructions / Follow-Up Instructions / Follow-Up ACTIVITY RECOMMENDATIONS: SELF CARE INSTRUCTIONS AFTER TOTAL HIP REPLACEMENT Until the incision and soft tissues around your hip have healed, there is a possibility that the hip prosthesis could dislocate. A. Observe the following precautions to prevent dislocation: 1. Don't bend your hip greater than 90 degrees. 2. Avoid crossing your legs or ankles while standing or lying. 3. Sit with your feet placed 6 inches apart. 4. When sitting, keep your knees below your hips. Sit on a firm surface, avoid deep, soft chairs and couches. Use an elevated toilet seat in the bathroom. 5. Don't bend over at the waist. Use a long handled shoehorn and a sock aid to help you put on your shoes and socks. A zoo keeper can help you pickup driver objects that are too high or too low to reach. 6. Keep car riding to a minimum for at least one month after surgery. B. Your balance may be shaky for a while. Use crutches or a walker until directed by your doctor. C. Use hand rails when walking on stairs. D. Wear low heeled shoes with non-slip soles. E. Be sure that your floors are free of things that could trip you - throw rugs , electrical cords, small objects. Avoid wet and waxed floors, especially with crutches and canes. F. Try to walk several times a day with rest periods between. G. Continue with all the exercises taught to you in the hospital. Again, make walking a part of your daily routine. SPECIAL CARE INSTRUCTIONS: VERY IMPORTANT TO READ AND REVIEW A. You may still be at risk for phlebitis and blood clots. 2. Take Aspirin 81mg twice daily for 4 weeks or as directed by your doctor. This is your blood thinner. 3. High risk patients may be prescribed a stronger blood thinner if necessary. 4. If you are on Coumadin normally, your family doctor/auto accessories installer should monitor your blood work. Expect a phone call the day of or the day after bloodwork is drawn to adjust your dosage. B. You must take antibiotics before having dental work, bladder, bowel and other surgery. Your doctor will provide you with a permanent card to carry describing precautions. C. Call [facility] if you have a fever, redness or swelling around the incision, cloudy drainage from incision, or sudden increase in pain in your hip, not relieved by your regular pain medication. D. Please call the office at if you have any concerns or questions about your operation or recovery. * YOU MAY SHOWER, NO TUB BATHS UNTIL CLEARED BY YOUR DOCTOR. * YOU SHOULD USE A WALKER OR CRUTCHES FOR 2-4 WEEKS. THIS WILL HELP PREVENT STRAIN ON YOUR HIP MUSCLE AND ALLOW IT TO HEAL PROPERLY. YOU MAY WEAN TO A CANE TOLERATED. * MOST PATIENTS WILL HAVE HOME NURSING FOR THERAPY. IF YOU DECIDE TO DO OUTPATIENT PHYSICAL THERAPY, PLEASE SCHEDULE THIS 3 TIMES PER WEEK. * YOU MAY HAVE A LARGE, BAND-LEDA LIKE DRESSING (SILVERON). THIS WILL REMAIN ON YOUR INCISION FOR 7 DAYS, THEN CAN BE REMOVED. IF INCISION IS LEAKING THROUGH DRESSING, PLEASE CALL THE OFFICE . FOLLOW UP VISIT: If appointment is not already scheduled: Please call [facility] to make a follow-up appointment for 2 weeks after your surgery at . Current Hospital Diet Patient's current hospital diet: Regular Diet Discharge Diet Recommended Diet: Regular Diet Procedures Procedures Performed: left total hip arthroplasty uncemented Pending Studies Studies pending at discharge: no Medical Emergencies . Who to Call and When: Medical Emergencies: If at any time you feel your situation is an emergency, please call [phone] immediately. . Non-Emergent Contact Non-Emergency issues call your: Surgeon . "Provider Documentation" section prepared by Юлия Schroeder. . VTE Core Measure Inpt VTE Proph given/why not?: Other Anticoagulation, T.E.Shannon Rubio, SCD's [place] Drug Monitoring Program Search Results: patient reviewed within database, no issues identified
[2017-07-16 15:52] VITALS: BP 91/52; PULSE 67; TEMP 36.9; O2SAT 90
[2017-07-16 17:55] VITALS: BP 111/65
[2017-07-16 19:14] VITALS: BP 116/67; PULSE 64; TEMP 36.6; O2SAT 93
[2017-07-16] MEDS: SENNA 8.6 MG TAB PO SCH (21:57)
[2017-07-16] MEDS: SIMVASTATIN 20 MG TAB PO SCH (21:57)
[2017-07-17 00:25] VITALS: BP 122/70; PULSE 69; TEMP 36.4; O2SAT 91
[2017-07-17] MEDS: LEVOTHYROXINE 50 MCG TAB PO SCH (05:45)
[2017-07-17] MEDS: ACETAMINOPHEN 500 MG TAB PO SCH ×2 (05:46→13:09)
[2017-07-17] MEDS: OXYCODONE HCL IR 5 MG TAB (IMMEDIATE RELEASE) PO PRN ×2 (05:47→11:22)
[2017-07-17 07:47] VITALS: BP 112/63; PULSE 55; TEMP 36.5; O2SAT 92
--- NOTE | 2017-07-17 07:55 | Orthopedic Progress Note ---
Orthopedic Progress Note Date of Service Jul 17, 2017. Subjective Post OP Day: 2 Reports: feeling well, Denies: complaints Additional Notes: Feeling much better today. Looking forward to going home. Objective calves soft nontender, N/V intact, hip located, dressing C/D/I (silverlon), A&O x3, toes mobile Date Time Temp Pulse Resp B/P (MAP) Pulse Ox O2 Delivery O2 Flow Rate FiO2 07/17/17 07:47 36.5 55 16 112/63 (79) 92 Room Air 07/17/17 00:25 36.4 69 16 122/70 (87) 91 Room Air 07/16/17 21:00 Room Air 07/16/17 19:14 36.6 64 16 116/67 (83) 93 Room Air 07/16/17 17:55 111/65 (80) 07/16/17 15:52 36.9 67 16 91/52 (65) 90 Room Air 07/16/17 10:51 37.0 61 18 98/57 (71) 91 Room Air 07/16/17 08:59 Room Air Assessment & Plan Assessment: POD 2 s/p Left YUSUF Plan: PT/OT today Plan for [facility] OPPT DC home today Inhouse Planning Pain Management: PO Tylenol, Oxy IR DVT Prophylaxis: TEDs, SCDs, ASA Discharge Planning Discharge Planning: rehab hospital
[2017-07-17] MEDS ORDERED: RXC5 PO ×2 (07:57→08:04)
[2017-07-17] MEDS ORDERED: ASPI81TA28 PO (07:57)
[2017-07-17] MEDS ORDERED: SENN-61 PO (07:57)
[2017-07-17] MEDS: KETOROLAC TROMETHAMINE 15 MG/ML VIAL IV. PRN (09:14)
[2017-07-17] MEDS: FUROSEMIDE 20 MG TAB PO SCH (09:15)
[2017-07-17] MEDS: LOSARTAN POTASSIUM 25 MG TAB PO SCH (09:15)
[2017-07-17] MEDS: SPIRONOLACTONE 100 MG TAB PO SCH (09:16)
[2017-07-17] MEDS: DOCUSATE SODIUM 100 MG CAP PO SCH (09:16)
[2017-07-17] MEDS: CARBIDOPA/LEVODOPA 25/100MG TAB PO SCH (09:17)
[2017-07-17] MEDS: POTASSIUM CHLORIDE 10 MEQ TABCR PO SCH (09:17)
[2017-07-17] MEDS: ASPIRIN 81 MG ECTAB PO SCH (09:18)
[2017-07-17] MEDS: OXYBUTYNIN CHLORIDE 5 MG TAB PO SCH (09:18)
[2017-07-17 12:45] VITALS: BP 112/63; PULSE 55; TEMP 36.5; O2SAT 92
== END 2017-07-17 13:50 | disposition home or self-care (01) | DRG 470 ==
LOC: C.ACU 08:05 → C.3E 09:40 → ENRESERV 12:13
PROVIDERS: ADMIT Orthopaedic Surgery; ATTEND Orthopaedic Surgery
PROC: 0SRB03A Replacement of Left Hip Joint with Ceramic Synthetic Substitute, Uncemented, Open Approach (ICD-10-PCS; principal; 2017-07-15 10:45)
DX: M16.12 Unilateral primary osteoarthritis, left hip (principal); I12.9 Hypertensive chronic kidney disease with stage 1 through stage 4 chronic kidney disease, or unspecified chronic kidney disease; E11.22 Type 2 diabetes mellitus with diabetic chronic kidney disease; N18.2 Chronic kidney disease, stage 2 (mild); E78.5 Hyperlipidemia, unspecified; E03.9 Hypothyroidism, unspecified; G20 Parkinson's disease; Z96.641 Presence of right artificial hip joint; Z96.653 Presence of artificial knee joint, bilateral; Z79.82 Long term (current) use of aspirin; Z79.899 Other long term (current) drug therapy

== ENCOUNTER → 2017-10-02 | Outpatient (CLI) | payer OTHER ==
[~2017-10-02] MED LIST changes: -ACETAMINOPHEN 500 MG TAB PO SCH; -BUPIVACAINE 0.5 % 5 MG/1 ML PF 10ML VIAL ONE; -CEFAZOLIN 1000MG IV PUSH 5 ML IV SCH; -CeleBREX 200 MG CAP PO SCH; -DEXAMETHASONE 4 MG TAB PO SCH; +DTR5 PO; -FAMOTIDINE 20 MG TAB PO SCH; -LACTATED RINGER'S 1000ML 1,000 ML IV SCH; -METOCLOPRAMIDE HCL 10 MG TAB PO SCH; -OXYBUTYNIN PO; -ROPIVACAINE 5MG/ML 30 ML 150 MG, BUPIVACAINE 0.5% MPF INJ 30 ML, EpINEphrine HCL INJ 0.... INFIL SCH; +SENN-61 PO
== END | disposition home or self-care (01) ==
LOC: C.LABSPEC 16:57
PROVIDERS: ATTEND Urology
DX: N39.41 Urge incontinence (principal)